=== PATIENT | female | born 1960 | race African-American/Black ===

== ENCOUNTER 2017-09-17 07:30 | Emergency (ER) | payer OTHER ==
[~2017-09-17] VITALS: Ht 160 cm; Wt 59.0 kg
[~2017-09-17 07:30] MED LIST: METR-1 PO; OMEP20TA93 PO; PRED20 PO; PROMSYP PO; PROVENTIL HFA INH; VENTAER INH; Z.0.NO CURRENT MEDS; ZITH250T PO; ZITHTAB6 PO
[2017-09-17 07:31] VITALS: BP 130/66; PULSE 101; RESP 16; TEMP 97.5; O2SAT 99
--- NOTE | 2017-09-17 09:14 | PD ---
HPI Chief Complaint: Cold / Flu Symptoms Time Seen by Provider: 08:57 Travel History International Travel<30 days: No Contact w/Intl Traveler<30days: No Traveled to known affect area: No History of Present Illness HPI The patient was seen and examined in the presence of the nurse. This patient has been complaining of cough and congestion and runny nose. Coughing is making her right ribs hurt. No injury. Does not have exertional symptoms. No fever. She is a smoker. No alleviating factors. Duration 3 days PFSH Past Medical History Hx Anticoagulant Therapy: No Asthma: Yes Autoimmune Disease: No Cardiovascular Problems: No Chemotherapy: No Cirrhosis: Yes (?) Cerebrovascular Accident: No Diabetes: Yes Diminished Hearing: No Gastrointestinal Disorders: Yes (GALLSTONES ) Headaches: Yes Respiratory: No : 5 Para: 5 Ovarian Cysts: Yes Tubal Ligation: Yes (1992) Past Surgical History Gynecologic Surgery: Yes Hysterectomy: No Social History Alcohol Use: Yes (4 BEERS DAILY) Tobacco Use: Yes (2PPD) Substance Use: Yes (SMOKES COCAINE 1 A WEEK) Allergies-Medications (Allergen,Severity, Reaction): Coded Allergies: No Known Allergies (Verified , 05/09/15) Reported Meds & Prescriptions Reported Meds & Active Scripts Active Deltasone (Prednisone) 20 Mg Tab 20 Mg PO BID Ventolin Hfa (Albuterol Sulfate) 18 Gm Aero 2 Puff INH Q4H PRN * SHAKE WELL BEFORE USE * Zithromax Z-Pb (Azithromycin) 250 Mg Tab 250 Mg PO DIRECTED 5 Days 500 MG (2 TABLETS) PO ON DAY 1, THEN 250 MG (1 TABLET) PO ON DAYS 2 TO 5. Phenergan Vc With Codeine (Promethazine/Phenylephrine/Codeine) Syrp 10 Ml PO Q4 -6HPRN 5 Days Proventil Hfa (Albuterol Sulfate) 6.7 Gm Aer 2 Puff INH Q6HPRN Zithromax Tri-Pb (Azithromycin) Tab 1 Tab PO DAILY DISPENSE 1 PACK Reported No Current Meds (Miscellaneous Medication) Misc Review of Systems General / Constitutional: No: Fever Eyes: No: Visual changes HENT: Positive: Rhinorrhea, Congestion, No: Headaches Cardiovascular: Positive: Chest Pain or Discomfort Respiratory: Positive: Cough, Wheezing, No: Shortness of Breath Gastrointestinal: No: Abdominal Pain Genitourinary: No: Dysuria Musculoskeletal: No: Pain Skin: No Rash Neurologic: No: Weakness Psychiatric: No: Depression Endocrine: No: Polydipsia Hematologic/Lymphatic: No: Easy Bruising Physical Exam Narrative GENERAL: Well-nourished, well-developed patient in no apparent distress. SKIN: Focused skin assessment reveals no rash and nodules. Skin is Warm and dry. HEAD: Atraumatic. Normocephalic. EYES: Pupils equal and round. No scleral icterus. No injection or drainage. ENT: No nasal bleeding or discharge. Mucous membranes pink and moist. NECK: Trachea midline. No JVD. CARDIOVASCULAR: Regular rate and rhythm. No murmur appreciated. RESPIRATORY: No accessory muscle use. rare expiratory wheeze on auscultation. Breath sounds equal bilaterally. GASTROINTESTINAL: Abdomen soft, non-tender, nondistended. Hepatic and splenic margins not palpable. MUSCULOSKELETAL: No obvious deformities. No clubbing. No cyanosis. No edema. NEUROLOGICAL: Awake and alert. No obvious cranial nerve deficits. Motor grossly within normal limits. Normal speech. PSYCHIATRIC: Appropriate mood and affect; insight and judgment normal. Data Data Last Documented VS Vital Signs Date Time Temp Pulse Resp B/P (MAP) Pulse Ox O2 Delivery O2 Flow Rate FiO2 09/17/17 09:45 20 Room Air 09/17/17 07:31 97.5 101 130/66 (87) 99 Orders Orders Chest, Single Ap (09/17/17 ) Electrocardiogram (09/17/17 ) [facility] Medical Decision Making Medical Screen Exam Complete: Yes Emergency Medical Condition: Yes Medical Record Reviewed: Yes Differential Diagnosis Asthma, bronchitis, pneumonia Narrative Course I have reviewed the patient's electronic medical record. I reviewed her EKG which shows sinus rhythm without ST elevation or ectopy I reviewed her chest x-ray which was normal However, the patient left AGAINST MEDICAL ADVICE prior to me reviewing results with her and reevaluating her. She snuck out of the department and did not say anything to anyone. Diagnosis Primary Impression: Bronchitis Additional Impression: Non-cardiac chest pain Disposition: 07 AGAINST MEDICAL ADVICE Lopez Guzmán MD Sep 17, 2017 09:14
--- NOTE | 2017-09-17 10:20 | RADRPT ---
EXAM DATE/TIME: 09/17/2017 09:46 [facility] COMPARISON: No previous studies available for comparison. INDICATIONS : Cough, cold like symptoms MEDICAL HISTORY : None. SURGICAL HISTORY : None. ENCOUNTER: Initial ACUITY: 4 - 6 days PAIN SCORE: 0/10 LOCATION: Bilateral chest FINDINGS: A single view of the chest demonstrates the lungs to be symmetrically aerated without evidence of mas s, infiltrate or effusion. The cardiomediastinal contours are unremarkable. Osseous structures are intact. CONCLUSION: 1. No acute cardiopulmonary findings. Albino Louie MD on September 17, 2017 at 10:18 Board Certified Radiologist. This report was verified electronically.
--- NOTE | 2017-09-17 15:14 | EKG ---
Date Performed: 09/17/2017 Time Performed: 09:15:45 PTAGE: 57 years EKG: Sinus rhythm NORMAL ECG PREVIOUS TRACING : 11/16/1992 08.47 DOCTOR: Anastacio Miller Interpretating Date/Time 09/17/2017 15:12:59
== END 2017-09-17 12:21 | disposition left against medical advice (07) ==
LOC: NEPC 07:30
DX: J40 Bronchitis, not specified as acute or chronic (principal); R07.89 Other chest pain; F17.210 Nicotine dependence, cigarettes, uncomplicated; E11.9 Type 2 diabetes mellitus without complications
CPT/HCPCS: 71045; 93005; 99284

== ENCOUNTER 2017-09-30 13:02 | Emergency (ER) | payer OTHER ==
[2017-09-30 13:14] VITALS: BP 145/80; PULSE 99; RESP 20; TEMP 98.1; O2SAT 98
--- NOTE | 2017-09-30 13:52 | RADRPT ---
EXAM DATE/TIME: 09/30/2017 13:45 [facility] COMPARISON: No previous studies available for comparison. INDICATIONS : Right foot swelling for 3 days. No injury. MEDICAL HISTORY : Diabetes. Lower extremity neuropathy. SURGICAL HISTORY : None. ENCOUNTER: Initial ACUITY: 3 days PAIN SCORE: 7/10 LOCATION: Right foot. FINDINGS: Three view examination of the right foot demonstrates no dislocation, or fracture. There is nonspeci fic soft tissue swelling around the foot. The tarsal bones appear intact. The interphalangeal and me tatarsophalangeal joints are intact. The calcaneus is intact. Bony mineralization is normal. No rad iopaque foreign bodies. CONCLUSION: 1. Nonspecific soft tissue swelling. 2. No acute fracture or joint dislocation. Arvin Medina MD on September 30, 2017 at 13:50 Board Certified Radiologist. This report was verified electronically.
--- NOTE | 2017-09-30 15:29 | RADRPT ---
EXAM DATE/TIME: 09/30/2017 14:37 [facility] COMPARISON: No previous studies available for comparison. INDICATIONS : Right leg swelling. MEDICAL HISTORY : Asthma. Ovarian cysts. Gallstones. Diabetes. SURGICAL HISTORY : Tubal ligation. ENCOUNTER: Initial ACUITY: 1 month PAIN SCORE: 5/10 LOCATION: Right leg. TECHNIQUE: Venous ultrasound of the leg was performed from the inguinal ligament to the proximal calf. Real-elisabteh e, color Doppler and spectral tracing, compression and augmentation techniques were used. FINDINGS: There is normal compressibility of the deep venous system from the inguinal region to the proximal ca lf. No echogenic clot is seen in the lumen of the common femoral, femoral, popliteal, and posterior tibial veins. There is a normal response of the venous system to proximal and distal augmentation an d respiration. CONCLUSION: No evidence of DVT. Arvin Medina MD on September 30, 2017 at 15:27 Board Certified Radiologist. This report was verified electronically.
[2017-09-30] MEDS ORDERED: CEPH-460 PO (16:29)
[2017-09-30] MEDS ORDERED: NAPR500 PO (16:29)
[2017-09-30] MEDS ORDERED: BACT800T5 PO (16:29)
[2017-09-30] MEDS ORDERED: KETOROLAC TROMETHAMINE 60 MG/2 ML (IM) VIAL IM ONE (16:30)
--- NOTE | 2017-09-30 16:40 | PD ---
HPI Chief Complaint: Injury Time Seen by Provider: 16:01 Travel History International Travel<30 days: No Contact w/Intl Traveler<30days: No Traveled to known affect area: No History of Present Illness HPI Patient comes emerged from complaining of right foot pain swelling that began 4 days ago. Patient denies any known injury. Reports that she has bad calluses on her feet and had to have one scraped off by her special diet cook over that area last month. Patient reports she was doing fine until 4 days ago. Patient denies any fevers or radiation of the pain. Pain is worse with palpation and walking. Patient reports she is out of her gabapentin secondary to cost. Patient denies doing anything for this. It is noted patient's chart that she has a history of diabetes, but the patient denies this. Patient requesting a pain shot. Patient describes pain as a burning sensation over the distal fifth metatarsal. PFSH Past Medical History Hx Anticoagulant Therapy: No Asthma: Yes Autoimmune Disease: No Cardiovascular Problems: No Chemotherapy: No Cirrhosis: Yes (?) Cerebrovascular Accident: No Diabetes: Yes Patient Takes Glucophage: No Diminished Hearing: No Gastrointestinal Disorders: Yes (GALLSTONES ) Headaches: Yes Respiratory: No Menopausal: Yes : 5 Para: 5 Ovarian Cysts: Yes Tubal Ligation: Yes (1992) Past Surgical History Gynecologic Surgery: Yes Hysterectomy: No Other Surgery: No Social History Alcohol Use: Yes (DAILY) Tobacco Use: Yes (1/2 pack a day ) Substance Use: No Allergies-Medications (Allergen,Severity, Reaction): Coded Allergies: No Known Allergies (Verified , 05/09/15) Reported Meds & Prescriptions Reported Meds & Active Scripts Active Naprosyn (Naproxen) 500 Mg Tab 500 Mg PO Q12HR PRN Keflex (Cephalexin) 500 Mg Cap 500 Mg PO Q8H Bactrim DS (Sulfamethoxazole-Trimethoprim) 800-160 Mg Tab 1 Tab PO BID Flagyl (Metronidazole) 500 Mg Tab 500 Mg PO BID 7 Days Omeprazole 20 Mg Tab 20 Mg PO DAILY Deltasone (Prednisone) 20 Mg Tab 20 Mg PO BID Ventolin Hfa (Albuterol Sulfate) 18 Gm Aero 2 Puff INH Q4H PRN * SHAKE WELL BEFORE USE * Zithromax Z-Pb (Azithromycin) 250 Mg Tab 250 Mg PO DIRECTED 5 Days 500 MG (2 TABLETS) PO ON DAY 1, THEN 250 MG (1 TABLET) PO ON DAYS 2 TO 5. Phenergan Vc With Codeine (Promethazine/Phenylephrine/Codeine) Syrp 10 Ml PO Q4 -6HPRN 5 Days Proventil Hfa (Albuterol Sulfate) 6.7 Gm Aer 2 Puff INH Q6HPRN Zithromax Tri-Pb (Azithromycin) Tab 1 Tab PO DAILY DISPENSE 1 PACK Reported No Current Meds (Miscellaneous Medication) Misc Review of Systems Except as stated in HPI: all other systems reviewed are Neg Physical Exam Narrative GENERAL: Well-developed, well nourished, in no acute distress, and non-ill appearing. SKIN: Calluses noted on feet. Patient reports tenderness over distal fifth metatarsal right lower extremity. There is no fluctuation or crepitus. There is no drainage. There is some soft tissue swelling noted of the right foot. Is afebrile. There is no open wound appreciated. HEAD: Atraumatic. Normocephalic. EYES: Pupils equal and round. EOMI. No scleral icterus. No injection or drainage. ENT: No nasal bleeding or discharge. Mucous membranes pink and moist. NECK: Trachea midline. Supple. No nuclear rigidity. CARDIOVASCULAR: Dorsal pulses 2+, intact, and equal bilaterally. Capillary refill less than 2 seconds. RESPIRATORY: No accessory muscle use. No respiratory distress. MUSCULOSKELETAL: No obvious deformities. No clubbing. No cyanosis. No edema. Full range of motion. NEUROLOGICAL: Awake and alert. No obvious cranial nerve deficits. Motor grossly within normal limits. Normal speech. PSYCHIATRIC: Appropriate mood and affect; insight and judgment normal. Data Data Last Documented VS Vital Signs Date Time Temp Pulse Resp B/P (MAP) Pulse Ox O2 Delivery O2 Flow Rate FiO2 09/30/17 13:14 98.1 99 20 145/80 (101) 98 Orders Orders Foot, Complete (Oer3pmg) (09/30/17 ) Us Leg Venous Doppler (09/30/17 ) Ketorolac Inj (Toradol Inj) (09/30/17 16:30) Ed Discharge Order (09/30/17 16:45) MDM Medical Decision Making Medical Screen Exam Complete: Yes Emergency Medical Condition: Yes Interpretation(s) Last Impressions Lower Extremity Ultrasound 09/30/17 0000 Signed Impressions: Service Date/Time: Saturday, September 30, 2017 14:37 - CONCLUSION: No evidence of DVT. Arvin Medina MD Foot X-Ray 09/30/17 0000 Signed Impressions: Service Date/Time: Saturday, September 30, 2017 13:45 - CONCLUSION: 1. Nonspecific soft tissue swelling. 2. No acute fracture or joint dislocation. Arvin Medina MD Differential Diagnosis Neuropathy, calluses, gout, pseudogout, osteomyelitis, infected callus, DVT, fracture Narrative Course There is no evidence to suggest infectious, septic joint at this time. There was no significant erythema, heat, crepitus, or fluctuance. The patient has had no distal or local trauma, cuts or abrasions. There has been no fever. There is no trauma to suspect contusion, strain or fracture. There is no evidence to suggest occult fracture or bony tumor by x-ray. There is no clinical evidence to suggest bursitis, tendonitis, osteoarthritis, Rheumatoid arthritis, or septic arthritis. The patient was placed on antibiotics prophylactically, NSAID medication, and the patient was instructed on ice packs as well. The patient was instructed to follow-up with her special diet cook. The patient agreed with plan. Patient in no obvious distress upon re-evaluation. All pertinent Radiology result(s) discussed with patient. Patient was asked if they wanted to speak to my attending, which the patient did not wish to do at this time. Any questions/ concerns in reference to patient diagnosis/condition discussed and clarified prior to patient's discharge. Reinforced sheer importance of close follow up with patient's primary physician or primary care clinic and/or special diet cook. Instructed patient to return to ED immediately, if symptoms return/worsen. Patient showed understanding of above instructions. Further instructions and recommendations were detailed in discharge paperwork. Patient ambulated without difficulty out of ED at discharge. Diagnosis Primary Impression: Right foot pain Referrals: [facility] Patient Instructions: General Instructions, Metatarsalgia (GEN) Additional Instructions: Follow-up with your primary care physician and/or special diet cook this week for reevaluation. Take all medication as prescribed. Apply ice to affected area 20 minutes prior as needed for pain. Elevate affected foot to decrease pain and swelling. Return to the emergency department if symptoms get worse. Med/Other Pt SpecificInfo: Prescription(s) given Scripts Naproxen (Naprosyn) 500 Mg Tab 500 MG PO Q12HR Y for PAIN SCALE 1 TO 10, #14 TAB 0 Refills Prov: Melia Montague MD 09/30/17 Cephalexin (Keflex) 500 Mg Cap 500 MG PO Q8H for Infection, #30 CAP 0 Refills Prov: Melia Montague MD 09/30/17 Sulfamethoxazole-Trimethoprim (Bactrim DS) 800-160 Mg Tab 1 TAB PO BID for Infection, #20 TAB 0 Refills Prov: Melia Montague MD 09/30/17 Disposition: 01 DISCHARGE HOME Condition: Stable Tomas Hou Sep 30, 2017 16:40
== END 2017-09-30 17:20 | disposition home or self-care (01) ==
LOC: NEPK 13:02
DX: M79.671 Pain in right foot (principal); J45.909 Unspecified asthma, uncomplicated; F17.200 Nicotine dependence, unspecified, uncomplicated
CPT/HCPCS: 73630; 93971; 96372; 99284; J1885